=== PATIENT | female | born 1950 | race Caucasian/White ===

== ENCOUNTER 2016-08-08 21:08 | Emergency (ER) | payer OTHER ==
[~2016-08-08] VITALS: Ht 160 cm; Wt 84.8 kg
[~2016-08-08 21:08] MED LIST: ADVIN25/60 INH; ATOR10TA82 PO; CALC500C70 PO; ESCI1TAB6 PO; MOME50SP5; MULT-513 PO
[2016-08-08 21:11] VITALS: TEMP 37.9; Ht 160 cm; Wt 84.8 kg
[2016-08-08] MEDS ORDERED: KETOROLAC TROMETHAMINE 60 MG/2 ML VIAL IM STA (21:37)
[2016-08-08] MEDS ORDERED: ONDANSETRON 4MG OD TAB PO STA (21:37)
[2016-08-08] MEDS ORDERED: DEXAMETHASONE SOD INJ 10 MG/ML VIAL IM ONE (21:45)
[2016-08-08] MEDS ORDERED: MoRPHine SULFATE 4 MG/ML 1 ML CARP\\VIAL IM ONE (21:45)
[2016-08-08] MEDS ORDERED: OMEP20CA9 PO (22:02)
[2016-08-08] MEDS ORDERED: ATOR-22 PO (22:02)
[2016-08-08] MEDS ORDERED: MOME6000 (22:02)
[2016-08-08] MEDS ORDERED: LXP10 PO (22:02)
--- NOTE | 2016-08-08 22:21 | DIAGNOSTIC IMAGING REPORT ---
RIGHT SHOULDER MIN 2 VIEWS ROUTINE CLINICAL HISTORY: Right shoulder pain COMPARISON: None. DISCUSSION: No fractures or dislocations are visualized. There is mild spurring at the level the greater tuberosity. There are no destructive lesions. There are no visible periarticular calcifications. IMPRESSION: No fractures, dislocations, or destructive lesions are visualized. Electronically signed by: Marcelo Back M.D. 08/08/2016 10:20 PM Dictated Date/Time: 08/08/2016 10:19 PM
[2016-08-08 22:42] VITALS: BP 129/79; PULSE 94; O2SAT 97
[2016-08-08] MEDS ORDERED: NORCO 5/325MG HOME PACK PO ONE (22:45)
[2016-08-08] MEDS ORDERED: OXYC1TAB3 PO (22:49)
[2016-08-08] MEDS ORDERED: PRED50TA PO (22:49)
--- NOTE | 2016-08-09 02:17 | EMERGENCY ROOM VISIT NOTE ---
ED Visit Note First contact with patient: 21:28 CHIEF COMPLAINT: Shoulder pain HISTORY OF PRESENT ILLNESS: This 66-year-old female patient presents to the emergency department complaining of pain in the right shoulder that began worsening today after she awoke from sleep. The patient has difficulty with range of motion of the shoulder. She does not recall injury or trauma. She has not had increase in activity. The pain is moderate, constant and increases with motion of the hand and arm. The patient states the pain is dull and 8/10. The patient has taken ibuprofen without relief of the pain. No previous significant previous shoulder disease or injury. No numbness or tingling. No neck and no back pain. No chest pain or shortness of breath. No abdominal pain or nausea/vomiting. No cough. REVIEW OF SYSTEMS: A 6 system review of systems was performed with positives and pertinent negatives in the HPI. ALLERGIES: PCN MEDICATIONS: See EMR PMH: See EMR SOCIAL HISTORY: No chronic medical disease PHYSICAL EXAM: Vital Signs: Reviewed nurse's notes, vital signs stable. GENERAL : White female, in no acute distress, but appears to be in pain, well-developed , well-nourished. MUSCULOSKELETAL: There is no deformity in the contour of the right shoulder and there are no shan deformities noted. There is no sulcus sign. There is tenderness over the distal clavicle into the lateral shoulder. The patient's range of motion is limited. Supraspinatus strength 2/5. No tenderness of the humerus, elbow, wrist, or hand. Senior Principal Software Engineer strength 5/5. Radial pulse 2+. NECK: No tenderness to palpation over the cervical spine. HEART: Regular rate and rhythm without murmurs gallops or rubs. LUNGS: Clear to auscultation bilaterally without wheezes, rales or rhonchi. No accessory muscle use. No retractions. NEURO: The patient is alert and oriented to person , place, and time. Normal sensation to light and sharp touch. Capillary refill less than 2 seconds. RIGHT SHOULDER MIN 2 VIEWS ROUTINE CLINICAL HISTORY: Right shoulder pain COMPARISON: None. DISCUSSION: No fractures or dislocations are visualized. There is mild spurring at the level the greater tuberosity. There are no destructive lesions. There are no visible periarticular calcifications. IMPRESSION: No fractures, dislocations, or destructive lesions are visualized. EMERGENCY DEPARTMENT COURSE: Physical exam and history were performed. Nursing notes and EMR were reviewed. The patient appears to have right shoulder pain. She is uncomfortable on exam. Her pain is reproducible with palpation and range of motion does exacerbate her symptoms. I do not suspect a cardiac etiology. The patient was given 4 mg IM morphine, 10 mg IM Decadron, 60 mg IM Toradol, and 4 mg Zofran ODT for her symptoms. X-rays were obtained and do not show evidence of acute bony abnormality per radiology read. I discussed options of care with the patient, who did feel much better after analgesics. I suspect her symptoms are musculoskeletal in nature and we will give her a short course of pain medication and steroids. She has followed with Dr. Arias the past and will be referred back to his service for further care and management. The patient was placed in an arm sling for comfort. She was otherwise invited back to the ER with any new, worsening, or concerning symptoms. Current/Historical Medications Scheduled Atorvastatin (Lipitor), 20 MG PO DAILY Calcium/Vitamin D (Os-Fabrizio 500 Plus D), 1 TAB PO DAILY Escitalopram Oxalate (Escitalopram Oxalate), 5 MG PO DAILY Fluticasone Prop/Salmeterol (Advair Diskus 250/50 60 Dose), 1 PUFF INH BID Multivitamins/Minerals (Mvi With Minerals), 1 TAB PO DAILY Omeprazole (Prilosec), 20 MG PO DAILY Oxycodone Immediate Rel Tab (Roxicodone Ir), 1 TAB PO Q6 Prednisone (Prednisone), 50 MG PO DAILY Scheduled PRN Mometasone Furoate (Nasal) (Mometasone Furoate), 1 SPRAY NA UD PRN for Post Nasal Drip Allergies Coded Allergies: Penicillins (Verified Allergy, Mild, RASH, 06/05/15) Vital Signs Date Time Temp Pulse Resp B/P Pulse Ox O2 Delivery O2 Flow Rate FiO2 08/08/16 22:42 94 16 129/79 97 Room Air 08/08/16 21:11 37.9 76 18 118/71 96 Room Air Medications Administered Medications (Trade) Dose Ordered Sig/Jewel Route Start Time Stop Time Status Last Admin Dose Admin Dexamethasone Sodium Phosphate (Decadron Inj) 10 mg NOW ONCE IM 08/08/16 21:45 08/08/16 21:46 DC 08/08/16 21:47 10 MG Morphine Sulfate (MoRPHine SULFATE INJ) 4 mg NOW ONCE IM 08/08/16 21:45 08/08/16 21:46 DC 08/08/16 21:47 4 MG Ondansetron HCl (Zofran Odt) 4 mg NOW STAT PO 08/08/16 21:37 08/08/16 21:39 DC 08/08/16 21:47 4 MG Ketorolac Tromethamine (Toradol Inj) 60 mg NOW STAT IM 08/08/16 21:37 08/08/16 21:39 DC 08/08/16 21:48 60 MG Departure Information Impression Primary Impression: Right shoulder pain Dispostion Home / Self-Care Condition GOOD Prescriptions Prednisone (Prednisone) 50 Mg Tab 50 MG PO DAILY for 4 Days, #4 TAB Prov: Roshan Painting PA-C 08/08/16 Oxycodone Immediate Rel Tab (ROXICODONE IR) 5 Mg Tab 1 TAB PO Q6, #12 TAB Prov: Roshan Painting PA-C 08/08/16 Referrals Yousif Andrews M.D. Forms HOME CARE DOCUMENTATION FORM, IMPORTANT VISIT INFORMATION Patient Instructions My [facility] Additional Instructions You were seen and evaluated today on an emergency basis only. This is not a substitute for, or an effort to provide, complete comprehensive medical care. It is not possible to recognize and treat all injuries or illnesses in a single emergency department visit. For this reason it is recommended that you followup with Orthopedics, Dr. Andrews's office, for ongoing care and evaluation. For baseline pain relief you may alternate ibuprofen and acetaminophen every 4 hours for pain control. Take 600 mg ibuprofen (Advil) and then 4 hours later take 1000 mg acetaminophen (Tylenol). Do not take more than 3000 mg acetaminophen in a single day. Oxycodone (OxyIR) 5mg: Take ONE pill every SIX hours for breakthrough pain. Avoid alcohol, operating machinery or dangerous equipment, working on ladders or roofs, DRIVING, or situations where being under the influence may be dangerous. It is recommended to use an lyei-myu-ohkzhie stool softener such as Colace, 100mg twice daily while taking this medication to avoid constipation. Take prednisone as prescribed the next 4 days Wear your arm sling for comfort. You are welcome to return to the emergency department anytime with new, worsening, or concerning symptoms.
[2017-01-01] MEDS ORDERED: GABA-113 PO (13:22)
[2017-01-23] MEDS ORDERED: DULO-24 PO (11:36)
[2017-01-23] MEDS ORDERED: MELO7.5T5 PO (11:36)
== END 2016-08-08 22:53 | disposition home or self-care (01) ==
LOC: C.EDB 21:10 → C.EDD 22:53
DX: M25.511 Pain in right shoulder (principal); Z79.899 Other long term (current) drug therapy

== ENCOUNTER → 2016-10-04 | Outpatient (CLI) | payer OTHER ==
[~2016-10-04] MED LIST changes: +ATOR-22 PO; -ATOR10TA82 PO; +CHOL100010 PO; +DULO-24 PO; -ESCI1TAB6 PO; +GABA-113 PO; +LORA-741 PO; +LXP10 PO; +MELO7.5T5 PO; -MOME50SP5; +MOME6000; +OMEP20CA9 PO; +OXYC1TAB3 PO; +PRED10TA PO; +PRED20TA2 PO
== END ==
LOC: C.PAPS 17:30
PROVIDERS: ATTEND Obstetrics & Gynecology
DX: Z12.4 Encounter for screening for malignant neoplasm of cervix (principal)

== ENCOUNTER → 2016-12-04 | Outpatient (CLI) | payer OTHER ==
--- NOTE | 2016-12-04 09:57 | DIAGNOSTIC IMAGING REPORT ---
LEFT SHOULDER MIN 2 VIEWS ROUTINE HISTORY: 66 years-old Female Radicular pain of left upper extremityleft COMPARISON: Chest radiographs 01/11/2016 TECHNIQUE: 3 views of the left shoulder. FINDINGS: Mild AC joint degenerative changes are present. 7 x 3 mm calcification adjacent to the greater tuberosity suggesting calcific tendinosis of the rotator cuff, likely the infraspinatus. There is spurring of the greater tuberosity. Minimal marginal spurring involves the glenohumeral joint. There is no acute fracture or dislocation identified. Imaged left lung field appears clear. IMPRESSION: 1. No acute bony abnormality. 2. Mild glenohumeral and acromioclavicular osteoarthritis. 3. Calcific tendinosis of the left rotator cuff, likely the infraspinatus. The above report was generated using voice recognition software. It may contain grammatical, syntax or spelling errors. Electronically signed by: Beau Alvarez M.D. 12/04/2016 9:55 AM Dictated Date/Time: 12/04/2016 9:53 AM
== END | disposition home or self-care (01) ==
LOC: C.RADBC 09:42
PROVIDERS: ATTEND Physician Assistant
DX: M79.2 Neuralgia and neuritis, unspecified (principal); M75.32 Calcific tendinitis of left shoulder

== ENCOUNTER → 2016-12-04 | Outpatient (CLI) | payer OTHER ==
[2016-12-04 11:58] LABS: BASO % 0.1 %; BASO ABS # 0.01 K/uL (0-0.2); COMPLETE YES; EOS % 1.2 %; IG% 0.1 %; LYMPH % 34.2 %; LYMPH ABS # 2.37 K/uL (1.2-3.4); MEAN CELL VOLUME 86.8 fL (80-100); MEAN CORPUSCULAR HEMOGLOBIN 27.7 pg (25-34); MEAN CORPUSCULAR HGB CONC 31.9 g/dl (32-36); MEAN PLATELET VOLUME 9.4 fL (7.4-10.4); MONO % 8.5 %; NEUT % 55.9 %; PLATELET COUNT 221 K/uL (130-400); RED BLOOD COUNT 5.53 M/uL (4.2-5.4); WHITE BLOOD COUNT 6.92 K/uL (4.8-10.8)
[2016-12-04 12:23] LABS: ALKALINE PHOSPHATASE 91 U/L (45-117); ALT/SGPT 53 U/L (12-78); AST/SGOT 33 U/L (15-37); BLOOD UREA NITROGEN 23 mg/dl (7-18); BUN/CREATININE RATIO 24.9 (10-20); CALCIUM 8.9 mg/dl (8.5-10.1); CARBON DIOXIDE 28 mmol/L (21-32); CHLORIDE 106 mmol/L (98-107); CREATININE 0.93 mg/dl (0.60-1.20); GLUCOSE 86 mg/dl (70-99); POTASSIUM 3.5 mmol/L (3.5-5.1); SODIUM 142 mmol/L (136-145)
[2016-12-04 12:34] LABS: ALB/GLOB RATIO 1.2 (0.9-2); CHOLESTEROL 224 mg/dl (0-200); CHOLESTEROL/HDL RATIO 3.4; HDL CHOLESTEROL 66 mg/dl; LDL CHOLESTEROL CALCULATED 116 mg/dl; TRIGLYCERIDES 208 mg/dl (0-150); VERY LOW DENSITY LIPOPROT CALC 42 mg/dl
[2016-12-04 12:45] LABS: LYME DISEASE AB IGG NEG (NEG)
[2016-12-04 12:46] LABS: LYME DISEASE AB IGM NEG (NEG)
--- NOTE | 2016-12-19 10:45 | CODING QUERY MEDICAL NECESSITY ---
CQSUPPORTING DIAGNOSIS NEEDED A supporting diagnosis is required for the test/procedure performed on this patient in order for us to be reimbursed by the patient's insurance. Please provide a supporting diagnosis for the following test/procedure listed below next to the test name along with your signature. *If there is no additional diagnosis for this patient that would support the following test/procedure please document that below next to the test/procedure. Test(s)/Procedure(s) that require a supporting diagnosis: DOS 12/04/16 VITAMIN D TEST Provider Signature: Date: Thank you Stacia Townsend Health Information Management Once completed, please kindly fax back to [phone] For questions please call [phone]
== END | disposition home or self-care (01) ==
LOC: C.LABPBG 07:51
PROVIDERS: ATTEND Internal Medicine Geriatric Medicine
DX: J45.909 Unspecified asthma, uncomplicated (principal); G47.33 Obstructive sleep apnea (adult) (pediatric); M19.90 Unspecified osteoarthritis, unspecified site; R51 Headache; E78.5 Hyperlipidemia, unspecified; T14.8 Other injury of unspecified body region; W57.XXXA Bitten or stung by nonvenomous insect and other nonvenomous arthropods, initial encounter; M79.2 Neuralgia and neuritis, unspecified; M75.32 Calcific tendinitis of left shoulder; E55.9 Vitamin D deficiency, unspecified

== ENCOUNTER 2016-12-08 17:42 | Emergency (ER) | payer OTHER ==
[~2016-12-08] VITALS: Ht 160 cm; Wt 85.7 kg
[~2016-12-08 17:42] MED LIST changes: -CHOL100010 PO; -DULO-24 PO; -GABA-113 PO; -LORA-741 PO; -MELO7.5T5 PO; -PRED10TA PO; -PRED20TA2 PO
[2016-12-08 17:45] VITALS: TEMP 36.8; Ht 160 cm; Wt 85.7 kg
[2016-12-08] MEDS ORDERED: KETOROLAC TROMETHAMINE 30 MG/ML VIAL IV STA (17:59)
[2016-12-08] MEDS ORDERED: SODIUM CHLORIDE 0.9% 1000ML 1,000 ML IV STA (17:59)
[2016-12-08] MEDS ORDERED: OXYCODONE HCL IR 5 MG TAB (IMMEDIATE RELEASE) PO STA (17:59)
[2016-12-08] MEDS ORDERED: DEXAMETHASONE SOD INJ 10 MG/ML VIAL IV ONE (18:00)
--- NOTE | 2016-12-08 18:06 | EMERGENCY ROOM VISIT NOTE ---
History Report prepared by Aarti: Deanna Castillo Under the Supervision of: Dr. Cayden Kong D.O. First contact with patient: 17:49 Chief Complaint: ARM PAIN Stated Complaint: LEFT ARM PAIN History of Present Illness The patient is a 66 year old female who presents to the Emergency Room with complaints of persistent left shoulder pain that began several days ago. She currently rates her discomfort as a 10/10 in severity. The patient reports a history of osteoarthritis in her neck. She states that recently she began experiencing posterior left shoulder pain. The patient states that she was evaluated in her PCP's office on Friday and then had an x-ray and blood work done on Friday. She states that her x-ray revealed calcifications, bone spurs, and osteoarthritis. The patient states that she tested negative for Lyme disease. She states that the pain is radiating from her "trigger point" in her neck down her arm. The patient states that she began physical therapy and states that she additionally had therapy on Friday. She states that she attempted to get a hold of her PCP's office, but states that when she couldn't she called her physical therapist. The patient states that her therapist encouraged her to come into the emergency department for further evaluation and treatment. She reports left handed numbness and weakness in her left hand. The patient states that her pain is worsened with letting her arm hang down, but states that it is alleviated with propping her arm up or holding it up. She states that she has taken Ibuprofen for her discomfort. The patient states that she was started on Prednisone recently. She states that she has noticed back pain with deep breathing. The patient states that she has had difficulty sleeping secondary to the pain. She reports a history of high cholesterol and asthma, but denies any personal history of cancer. The patient denies any tobacco or alcohol use. She denies any chest pain, abdominal pain, rash, or swelling or pain to her lower extremities. Source of History: patient Onset: several days ago Position: shoulder (left) Symptom Intensity: 10/10 Timing: other (persistent) Modifying Factors (Worsening): other (letting arm hang down) Modifying Factors (Relieving): other (propping left arm up) Associated Symptoms: + neck pain, + back pain, + weakness (left hand), + numbness (left hand), No chest pain, No abdominal pain, No rash Review of Systems See HPI for pertinent positives & negatives. A total of 10 systems reviewed and were otherwise negative. Past Medical & Surgical Medical Problems: (1) Asthma (2) High cholesterol (3) Osteoarthritis Surgical Problems: (1) History of left knee replacement (2) History of right knee joint replacement (3) Hx of cholecystectomy Family History Cancer Heart disease Hypertension Kidney disease Kidney stones Social History Smoking Status: Never Smoker Smokeless Tobacco Use: No Alcohol Use: none Marital Status: Housing Status: lives with significant other Current/Historical Medications Scheduled Atorvastatin (Lipitor), 20 MG PO HS Calcium/Vitamin D (Os-Fabrizio 500 Plus D), 1 TAB PO DAILY Escitalopram Oxalate (Escitalopram Oxalate), 5 MG PO HS Fluticasone Prop/Salmeterol (Advair Diskus 250/50 60 Dose), 1 PUFF INH BID Multivitamins/Minerals (Mvi With Minerals), 1 TAB PO DAILY Omeprazole (Prilosec), 20 MG PO DAILY Prednisone (Prednisone), 10 MG PO UNKNOWN Prednisone (Prednisone Tab), 40 MG PO DAILY Scheduled PRN Mometasone Furoate (Nasal) (Mometasone Furoate), 1 SPRAY NA UD PRN for Post Nasal Drip Oxycodone Immediate Rel Tab (Roxicodone Ir), 1-2 TAB PO Q4H PRN for Severe Pain Allergies Coded Allergies: Penicillins (Verified Allergy, Mild, RASH, 06/05/15) Physical Exam Vital Signs Date Time Temp Pulse Resp B/P (MAP) Pulse Ox O2 Delivery O2 Flow Rate FiO2 12/08/16 19:40 77 18 158/92 97 Room Air 12/08/16 19:13 70 12/08/16 18:33 97 Room Air 12/08/16 18:33 97 Room Air 12/08/16 17:45 36.8 81 20 185/113 98 Room Air Physical Exam GENERAL: Patient is awake, alert, mildly anxious appearing and uncomfortable. EYES: The conjunctivae are clear. The pupils are round and reactive. EARS, NOSE, MOUTH AND THROAT: The nose is without any evidence of any deformity. Mucous membranes are moist tongue is midline NECK: The neck is nontender and supple. RESPIRATORY: Normal respiratory effort is noted there is no evidence of wheezing rhonchi or rales CARDIOVASCULAR: Regular rate and rhythm noted there no murmurs rubs or gallops normal S1 normal S2 GASTROINTESTINAL: The abdomen is soft. Bowel sounds are present in all quadrants. Abdomen is nontender BACK: Tenderness over the thoracic paravertebral musculature between the T- spine and left scapula, no midline tenderness noted. MUSCULOSKELETAL/EXTREMITIES: There is no evidence of gross deformity full range of motion is noted in the hips and shoulders SKIN: There is no obvious evidence of any rash. There are no petechiae, pallor or cyanosis noted. NEUROLOGIC: Patient is awake alert and oriented x3 strength is symmetric patellar reflexes are 2+ bilaterally. Achilles tendon reflexes are 2+ bilaterally, biceps tendon reflexes 2+ bilaterally. Medical Decision & Procedures ER Provider Diagnostic Interpretation: X-ray results as stated below per interpretation by me and the radiologist. CHEST 2 VIEWS ROUTINE HISTORY: 66 years-old Female acute back pain with radiation to the left arm. COMPARISON: Chest radiographs 01/11/2016 TECHNIQUE: Frontal and lateral views of the chest FINDINGS: The cardiomediastinal and hilar silhouettes are within normal limits. No pneumothorax, pleural effusion, focal airspace consolidation or overt pulmonary edema. The bones are grossly intact. Multilevel endplate spurring is seen throughout the spine. No compression deformity identified. Cholecystectomy clips are seen. IMPRESSION: 1. No acute cardiopulmonary process. 2. No fracture identified. The above report was generated using voice recognition software. It may contain grammatical, syntax or spelling errors. Electronically signed by: Beau Alvarez M.D. 12/08/2016 7:15 PM Dictated Date/Time: 12/08/2016 7:13 PM C-SPINE ROUTINE 4 OR 5 VIEWS HISTORY: 66 years-old Female pain radiating to the left upper extremity. Chronic neck pain. COMPARISON: Chest radiographs of same day, cervical spine radiographs 12/08/2014 TECHNIQUE: 5 views of the cervical spine. FINDINGS: Bones are moderately demineralized. The C6-C7 level and the C7 vertebral body are partially obscured by overlying soft tissue. No acute fracture or subluxation identified. The odontoid process appears intact. There is redemonstration of multilevel advanced degenerative changes including severe intervertebral disc space narrowing at C3-C4, C4-C5, C5-C6 and C6-C7. Multilevel uncovertebral spurring and facet arthrosis is also present. These changes combine to form multilevel neuroforaminal stenosis on the right, notably at the C3-C4 and C4-C5 levels. The left neuroforamina are normal seen secondary to patient positioning. No prevertebral soft tissue swelling. No radiopaque foreign body. Imaged lung apices are unremarkable. IMPRESSION: 1. No acute cervical spine fracture or subluxation. 2. Multilevel advanced degenerative changes of the cervical spine as above without definite change from comparison study 12/08/2014. The above report was generated using voice recognition software. It may contain grammatical, syntax or spelling errors. Electronically signed by: Beau Alvarez M.D. 12/08/2016 7:10 PM Dictated Date/Time: 12/08/2016 7:07 PM Laboratory Results 12/08/16 18:10 Red Blood Count 5.50, Mean Corpuscular Volume 84.2, Mean Corpuscular Hemoglobin 28.7, Mean Corpuscular Hemoglobin Concent 34.1, Mean Platelet Volume 8.9, Neutrophils (%) (Auto) 74.6, Lymphocytes (%) (Auto) 16.9, Monocytes (%) (Auto) 7.3, Eosinophils (%) (Auto) 0.8, Basophils (%) (Auto) 0.1, Neutrophils # (Auto) 5.27, Lymphocytes # (Auto) 1.20, Monocytes # (Auto) 0.52, Eosinophils # (Auto) 0.06, Basophils # (Auto) 0.01 12/08/16 18:10 Test 12/08/16 18:10 White Blood Count 7.08 K/uL (4.8-10.8) Red Blood Count 5.50 M/uL (4.2-5.4) Hemoglobin 15.8 g/dL (12.0-16.0) Hematocrit 46.3 % (37-47) Mean Corpuscular Volume 84.2 fL (80-100) Mean Corpuscular Hemoglobin 28.7 pg (25-34) Mean Corpuscular Hemoglobin Concent 34.1 g/dl (32-36) Platelet Count 202 K/uL (130-400) Mean Platelet Volume 8.9 fL (7.4-10.4) Neutrophils (%) (Auto) 74.6 % Lymphocytes (%) (Auto) 16.9 % Monocytes (%) (Auto) 7.3 % Eosinophils (%) (Auto) 0.8 % Basophils (%) (Auto) 0.1 % Neutrophils # (Auto) 5.27 K/uL (1.4-6.5) Lymphocytes # (Auto) 1.20 K/uL (1.2-3.4) Monocytes # (Auto) 0.52 K/uL (0.11-0.59) Eosinophils # (Auto) 0.06 K/uL (0-0.5) Basophils # (Auto) 0.01 K/uL (0-0.2) RDW Standard Deviation 41.4 fL (36.4-46.3) RDW Coefficient of Variation 13.5 % (11.5-14.5) Immature Granulocyte % (Auto) 0.3 % Immature Granulocyte # (Auto) 0.02 K/uL (0.00-0.02) Prothrombin Time 10.6 SECONDS (9.0-12.0) Prothromb Time International Ratio 1.0 (0.9-1.1) Activated Partial Thromboplast Time 23.8 SECONDS (21.0-31.0) Partial Thromboplastin Ratio 0.9 Anion Gap 5.0 mmol/L (3-11) Est Creatinine Clear Calc Drug Dose 64.6 ml/min Estimated GFR () 77.8 Estimated GFR (Non- 67.1 BUN/Creatinine Ratio 19.4 (10-20) Calcium Level 9.1 mg/dl (8.5-10.1) Total Bilirubin 0.9 mg/dl (0.2-1) Direct Bilirubin 0.2 mg/dl (0-0.2) Aspartate Amino Transf (AST/SGOT) 24 U/L (15-37) Alanine Aminotransferase (ALT/SGPT) 42 U/L (12-78) Alkaline Phosphatase 90 U/L (45-117) Troponin I < 0.015 ng/ml (0-0.045) Total Protein 7.5 gm/dl (6.4-8.2) Albumin 4.0 gm/dl (3.4-5.0) Lipase 227 U/L (73-393) Laboratory results per my review. Medications Administered Medications (Trade) Dose Ordered Sig/Jewel Route Start Time Stop Time Status Last Admin Dose Admin Sodium Chloride 1,000 ml @ 999 mls/hr Q1H1M STAT IV 12/08/16 17:59 12/08/16 18:59 DC 12/08/16 17:59 999 MLS/HR Dexamethasone Sodium Phosphate (Decadron Inj) 10 mg NOW ONCE IV 12/08/16 18:00 12/08/16 18:01 DC 12/08/16 18:21 10 MG Ketorolac Tromethamine (Toradol Inj) 30 mg NOW STAT IV 12/08/16 17:59 12/08/16 18:02 DC 12/08/16 18:20 30 MG Oxycodone HCl (Roxicodone Immediate Rel Tab) 5 mg NOW STAT PO 12/08/16 17:59 12/08/16 18:02 DC 12/08/16 18:21 5 MG Oxycodone HCl (Roxicodone Immediate Rel 5MG Home Pack) 1 homepack UD ONCE PO 12/08/16 20:15 12/08/16 20:16 DC 12/08/16 20:14 1 HOMEPACK ECG Indication: back/shoulder pain Rate (beats per minute): 65 Rhythm: normal sinus Findings: no acute ischemic change, no ectopy Comparison ECG Date: 06/16/14 ED Course 1750: The patient was evaluated in room B2. A complete history and physical examination were performed. 1758: Ordered Oxycodone HCl 5 mg PO, Toradol Inj 30 mg IV, Sodium Chloride 1000 ml @ 999 mls/hr IV, Decadron Inj 10 mg IV. 1958: I reevaluated the patient and she is resting comfortably. I discussed the exam findings with her and I discussed the treatment plan. She verbalized complete understanding and agreement. She is ready to go home. 2014: Ordered Oxycodone HCl 1 homepack PO. Medical Decision Differential diagnosis: Etiologies such as musculoskeletal, disc herniation, fracture, aortic disease, metastatic disease, cord compression, discitis, infection, renal colic, gastrointestinal, acute exacerbation of chronic back pain, sciatica, cauda equina, as well as others were entertained. Nursing notes reviewed. The patient is a 66-year-old female who presented to the emergency department for ongoing left shoulder pain. The patient appears to have musculoskeletal pain around her left scapula but she also noticed pain which radiates into her left arm. This pain is been constant since last week. The patient did not have any acute ischemic changes on EKG. Her cardiac biomarkers were negative. The patient was treated with steroids by her primary care physician's office with some relief. She was also started on steroids here. She was treated with IV fluids and pain medication as well. I discussed the patient's laboratory radiographic studies with her. She was neurologically intact. She describes pain which I think could be consistent with radiculopathy. Her x-rays did show some degree of arthritis. Currently she is scheduled with physical therapy and she is also scheduled for an EMG in the near future. She was encouraged to keep going to physical therapy and keep the appointment for EMG. She was also encouraged to continue all medications as prescribed and follow-up with her family doctor for recheck or return to the emergency department immediately if symptoms change worsen or the need arises. Medication Reconcilliation Current Medication List: was personally reviewed by me Blood Pressure Screening Patient's blood pressure: Elevated blood pressure Blood pressure disposition: Elevated BP felt to be situational, Did not require urgent referral Impression Primary Impression: Left shoulder pain Additional Impression: Radiculopathy affecting upper extremity Scribe Attestation The scribe's documentation has been prepared under my direction and personally reviewed by me in its entirety. I confirm that the note above accurately reflects all work, treatment, procedures, and medical decision making performed by me. Departure Information Dispostion Home / Self-Care Prescriptions Prednisone (Prednisone Tab) 20 Mg Tab 40 MG PO DAILY, #10 TAB Prov: Cayden Kong, DO 12/08/16 Oxycodone Immediate Rel Tab (ROXICODONE IR) 5 Mg Tab 1-2 TAB PO Q4H Y for Severe Pain, #20 TAB Prov: Cayden Kong, DO 12/08/16 Referrals Calvin Neal M.D. (PCP) Forms HOME CARE DOCUMENTATION FORM, IMPORTANT VISIT INFORMATION Patient Instructions ED Cervical Radiculopathy, [facility] Additional Instructions Continue to follow-up with your family doctor. Follow-up with physical therapy as scheduled. Follow-up for your EMG as scheduled. Continue all medications as prescribed. Rest and avoid any strenuous activity. Problem Qualifiers Primary Impression: Left shoulder pain Chronicity: acute Qualified Codes: M25.512 - Pain in left shoulder
[2016-12-08] MEDS ORDERED: PRED10TA PO (18:12)
[2016-12-08 18:19] LABS: BASO % 0.1 %; BASO ABS # 0.01 K/uL (0-0.2); COMPLETE YES; EOS % 0.8 %; HEMATOCRIT 46.3 % (37-47); IG% 0.3 %; LYMPH % 16.9 %; MEAN CELL VOLUME 84.2 fL (80-100); MEAN CORPUSCULAR HEMOGLOBIN 28.7 pg (25-34); MEAN CORPUSCULAR HGB CONC 34.1 g/dl (32-36); MEAN PLATELET VOLUME 8.9 fL (7.4-10.4); MONO % 7.3 %; NEUT % 74.6 %; PLATELET COUNT 202 K/uL (130-400); WHITE BLOOD COUNT 7.08 K/uL (4.8-10.8)
[2016-12-08 18:31] LABS: PARTIAL THROMBOPLASTIN RATIO 0.9; PROTHROMBIN TIME (PATIENT) 10.6 SECONDS (9.0-12.0)
[2016-12-08 18:33] VITALS: O2SAT 97
[2016-12-08 18:33] LABS: ALT/SGPT 42 U/L (12-78); AST/SGOT 24 U/L (15-37); BLOOD UREA NITROGEN 18 mg/dl (7-18); BUN/CREATININE RATIO 19.4 (10-20); CALCIUM 9.1 mg/dl (8.5-10.1); CARBON DIOXIDE 31 mmol/L (21-32); CHLORIDE 106 mmol/L (98-107); GLUCOSE 111 mg/dl (70-99); POTASSIUM 4.3 mmol/L (3.5-5.1); SODIUM 142 mmol/L (136-145)
[2016-12-08 18:38] LABS: ALKALINE PHOSPHATASE 90 U/L (45-117)
--- NOTE | 2016-12-08 19:11 | DIAGNOSTIC IMAGING REPORT ---
C-SPINE ROUTINE 4 OR 5 VIEWS HISTORY: 66 years-old Female pain radiating to the left upper extremity. Chronic neck pain. COMPARISON: Chest radiographs of same day, cervical spine radiographs 12/08/2014 TECHNIQUE: 5 views of the cervical spine. FINDINGS: Bones are moderately demineralized. The C6-C7 level and the C7 vertebral body are partially obscured by overlying soft tissue. No acute fracture or subluxation identified. The odontoid process appears intact. There is redemonstration of multilevel advanced degenerative changes including severe intervertebral disc space narrowing at C3-C4, C4-C5, C5-C6 and C6-C7. Multilevel uncovertebral spurring and facet arthrosis is also present. These changes combine to form multilevel neuroforaminal stenosis on the right, notably at the C3-C4 and C4-C5 levels. The left neuroforamina are normal seen secondary to patient positioning. No prevertebral soft tissue swelling. No radiopaque foreign body. Imaged lung apices are unremarkable. IMPRESSION: 1. No acute cervical spine fracture or subluxation. 2. Multilevel advanced degenerative changes of the cervical spine as above without definite change from comparison study 12/08/2014. The above report was generated using voice recognition software. It may contain grammatical, syntax or spelling errors. Electronically signed by: Beau Alvarez M.D. 12/08/2016 7:10 PM Dictated Date/Time: 12/08/2016 7:07 PM
--- NOTE | 2016-12-08 19:16 | DIAGNOSTIC IMAGING REPORT ---
CHEST 2 VIEWS ROUTINE HISTORY: 66 years-old Female acute back pain with radiation to the left arm. COMPARISON: Chest radiographs 01/11/2016 TECHNIQUE: Frontal and lateral views of the chest FINDINGS: The cardiomediastinal and hilar silhouettes are within normal limits. No pneumothorax, pleural effusion, focal airspace consolidation or overt pulmonary edema. The bones are grossly intact. Multilevel endplate spurring is seen throughout the spine. No compression deformity identified. Cholecystectomy clips are seen. IMPRESSION: 1. No acute cardiopulmonary process. 2. No fracture identified. The above report was generated using voice recognition software. It may contain grammatical, syntax or spelling errors. Electronically signed by: Beau Alvarez M.D. 12/08/2016 7:15 PM Dictated Date/Time: 12/08/2016 7:13 PM
[2016-12-08 19:40] VITALS: BP 158/92; PULSE 77; O2SAT 97
[2016-12-08] MEDS ORDERED: OXYC1TAB3 PO (20:03)
[2016-12-08] MEDS ORDERED: PRED20TA2 PO (20:03)
[2016-12-08] MEDS ORDERED: OXYCODONE IR HOME PACK PO ONE (20:15)
[2017-01-01] MEDS ORDERED: GABA-113 PO (13:22)
[2017-01-23] MEDS ORDERED: MELO7.5T5 PO (11:36)
[2017-01-23] MEDS ORDERED: DULO-24 PO (11:36)
== END 2016-12-08 20:10 | disposition home or self-care (01) ==
LOC: C.EDB 17:43
DX: M25.512 Pain in left shoulder (principal); M54.10 Radiculopathy, site unspecified; E78.00 Pure hypercholesterolemia, unspecified; J45.909 Unspecified asthma, uncomplicated; M19.90 Unspecified osteoarthritis, unspecified site; Z80.9 Family history of malignant neoplasm, unspecified; Z82.49 Family history of ischemic heart disease and other diseases of the circulatory system; Z84.1 Family history of disorders of kidney and ureter; Z79.899 Other long term (current) drug therapy

== ENCOUNTER → 2016-12-19 | Outpatient (CLI) | payer OTHER ==
[~2016-12-19] MED LIST changes: +CHOL100010 PO; +DULO-24 PO; +GABA-113 PO; +LORA-741 PO; +MELO7.5T5 PO; +PRED10TA PO; +PRED20TA2 PO
--- NOTE | 2016-12-19 08:44 | DIAGNOSTIC IMAGING REPORT ---
UPPER EXT JOINT WITHOUT CLINICAL HISTORY: 66 years-old Female with R93.8,M54.12. Severe acute left-sided shoulder pain. COMPARISON: Left shoulder radiographs 12/04/2016. TECHNIQUE: Multiplanar, multi sequence MRI of the left shoulder was performed without intravenous contrast. FINDINGS: ROTATOR CUFF: There is a full-thickness articular sided tear of the anterior insertional supraspinatus tendon, 9 x 8 mm in transverse and AP dimension with background severe supraspinatus tendinosis. Additionally, there is intermediate grade interstitial tearing of the mid fibers of the supraspinatus tendon, 8 x 6 mm in transverse and AP dimension as seen on image 14 of the sagittal T2 series. There is mild supraspinatus tendon atrophy without retraction. High-grade partial-thickness articular sided tear of the posterior insertional fibers of the infraspinatus tendon is noted, 7 x 5 mm with moderate associated tendinosis. Intrasubstance tearing of the mid fibers is noted with with associated fluid tracking adjacent to the myotendinous junction. No associated atrophy or tendon retraction. Small calcification, 4 x 4 x 6 mm involving the posterior insertional infraspinatus is seen compatible with calcific tendinosis as seen on image 16 of the sagittal PD series and image 10 of the coronal PD series. The teres minor is intact. There is moderate tendinosis of the subscapularis tendon with mild fraying and irregularity of the superior insertional fibers. No high-grade or full-thickness tear identified. BICEPS TENDON: The long head biceps tendon is intact. No evidence of tendinosis. The biceps magdalena and anchor are intact. LABRUM: There is fraying and tearing of the anterosuperior labrum seen nicely on image 8 of the coronal T2 series with tear extending into the posterior labrum. No significant associated edema, displaced fragment or paralabral cyst formation. GLENOHUMERAL JOINT: There is mild osteoarthritis of the glenohumeral joint without intra-articular loose body identified. Small joint effusion. ACROMIOCLAVICULAR JOINT: Mild/moderate AC joint degenerative changes are noted with marginal spurring and capsular hypertrophy. There is a moderate amount of subacromial/subdeltoid bursitis. OUTLET SPACES: The suprascapular notch and quadrilateral space are without obstructing or space occupying lesions. BONE MARROW: Subcortical cystic changes are noted adjacent to the anterior facet greater tuberosity. There is no focal fracture identified. SOFT TISSUES: The periarticular soft tissues are unremarkable. IMPRESSION: 1. Full-thickness articular sided tear of the anterior insertional supraspinatus, 9 x 8 mm with intermediate grade interstitial tearing of the mid fibers. Mild atrophy of the supraspinatous tendon without tendon retraction. 2. High-grade partial-thickness tear of the posterior insertional articular fibers of the infraspinatus tendon with moderate tendinopathy and calcific tendinosis. 3. Moderate subacromial/subdeltoid bursitis. 4. Mild glenohumeral and mild to moderate acromioclavicular osteoarthritis. Small joint effusion. The above report was generated using voice recognition software. It may contain grammatical, syntax or spelling errors. Electronically signed by: Beau Alvarze M.D. 12/19/2016 8:43 AM Dictated Date/Time: 12/19/2016 7:57 AM
== END | disposition home or self-care (01) ==
LOC: C.MRI 06:52
PROVIDERS: ATTEND Physician Assistant
DX: R93.8 Abnormal findings on diagnostic imaging of other specified body structures (principal); M54.12 Radiculopathy, cervical region

== ENCOUNTER → 2016-12-20 | Outpatient (CLI) | payer OTHER ==
[~2016-12-20] MED LIST changes: +GADAVIST IV PRN
--- NOTE | 2016-12-20 12:36 | DIAGNOSTIC IMAGING REPORT ---
MRI CERVICAL SPINE COMBO CLINICAL HISTORY: ABNORMAL FINDING IMAGING, CERVICAL RADICULOPATHY SEVERE LEFT NECK AND SHOULDER PAIN. TECHNIQUE: Sagittal and axial T1, T2 and STIR images were obtained. Imaging was performed before and after the administration of 8.5 cc of intravenous Gadavist COMPARISON STUDY: Conventional radiographic study dated 12/08/2016 There are no suspicious areas of marrow replacement. No intrinsic cervical cord lesions are visualized. C2-3: There is no evidence of disc bulge or focal herniation. There is no spinal or foraminal stenosis. C3-4: There is a circumferential disc bulge present. There is mild spinal stenosis. There is bilateral foraminal narrowing. C4-5: There is a mild circumferential disc bulge present. There is minimal spinal canal narrowing. There is bilateral foraminal narrowing left more severe than right. C5-6 :There is a minimal circumferential disc bulge. There is no significant spinal stenosis. There is bilateral foraminal narrowing. C6-7: There is a right paracentral disc protrusion with mild secondary deformity of the spinal cord. There is mild bilateral foraminal narrowing C7-T1: There is 2.5 mm of anterior listhesis of C7 on T1. There is no significant spinal stenosis. There is minor left-sided foraminal narrowing Postcontrast images reveal no pathologically enhancing lesions. IMPRESSION: 1. No intrinsic cord lesions identified. No pathologic masses. 2. Advanced multilevel spondylitic changes. 3. Small right paracentral disc protrusion at the C6-7 level with mild secondary deformity of the spinal cord 4. Disc bulge and mild spinal stenosis at the C3-4 and C4-5 levels 5. Multilevel bilateral foraminal stenosis. Electronically signed by: Marcelo Back M.D. 12/20/2016 12:35 PM Dictated Date/Time: 12/20/2016 12:29 PM
== END | disposition home or self-care (01) ==
LOC: C.MRI 10:42
PROVIDERS: ATTEND Physician Assistant
DX: M50.21 Other cervical disc displacement, high cervical region (principal); M50.221 Other cervical disc displacement at C4-C5 level; M50.223 Other cervical disc displacement at C6-C7 level; M48.02 Spinal stenosis, cervical region

== ENCOUNTER 2017-01-06 09:24 | Day surgery (SDC) | payer OTHER ==
[~2017-01-06] VITALS: Ht 160 cm; Wt 84.0 kg
[2017-01-06] VITALS (10 sets, daily range): BP systolic 111–181; BP diastolic 71–96; PULSE 88–99; TEMP 36.4–37.1; O2SAT 93–100; Ht 160 cm; Wt 84.0 kg
[~2017-01-06 09:24] MED LIST changes: -CHOL100010 PO; -DULO-24 PO; -GADAVIST IV PRN; -LORA-741 PO; -MELO7.5T5 PO; -PRED10TA PO; -PRED20TA2 PO
[2017-01-06] MEDS ORDERED: CHOL100010 PO (09:42)
[2017-01-06] MEDS ORDERED: LORA-741 PO (09:42)
--- NOTE | 2017-01-06 12:30 | DIAGNOSTIC IMAGING REPORT ---
CERVICAL SPINE WITH CLINICAL HISTORY: 66 years-old Female presenting with neck pain, right arm pain. TECHNIQUE: Multidetector CT of the cervical spine was performed after the administration of intrathecal contrast IV contrast: None. A dose lowering technique was used consistent with the principles of ALARA (as low as reasonably achievable). COMPARISON: MR from 12/20/2016. CT DOSE (mGy.cm): The estimated cumulative dose is 1430.00. FINDINGS: Clinical Cytogenetics Director topogram: Unremarkable. Straightening of normal cervical lordosis. Vertebral body heights maintained. Intervertebral disc height loss at multiple levels secondary to the presence of disc osteophyte complexes from C3-4 through C6-7. Multilevel degenerative changes further detailed below: C2-3: Mild uncovertebral hypertrophy on the left without significant neural foraminal narrowing. C3-4: Disc osteophyte complex and uncovertebral hypertrophy result in severe right and moderate left neural foraminal narrowing. C4-5: Disc osteophyte complex and bilateral uncovertebral hypertrophy result in severe bilateral neural foraminal narrowing as well as ventral effacement of the thecal sac. No significant deformity of the spinal cord results. C5-6: Disc osteophyte complex and bilateral uncovertebral hypertrophy result in severe bilateral neural foraminal narrowing. No significant effacement of the thecal sac. C6-7: Disc osteophyte complex and uncovertebral hypertrophy result in severe effacement of the anterior aspect of the right lateral recess. This may exert mass effect on the exiting right C7 nerve root. The neural foramina are moderately narrowed bilaterally, greater on the left. Contouring of the right anterior aspect of the spinal cord also results. C7-T1: Normal. Paraspinal soft tissues within normal limits. Interlobular septal thickening at the lung apices with minimal groundglass opacity, nonspecific. IMPRESSION: 1. Multilevel degenerative changes with varying degrees of neural foraminal and spinal canal stenosis. Neural foraminal narrowing is most severe on the right at C3-4 and bilaterally at C4-5 and C5-6. However significant effacement of the anterior aspect of the right lateral recess at C6-7 likely exerts mass effect on the exiting right C7 nerve root. Spinal canal stenosis most severe at C4-5 and C6-7 as above. Electronically signed by: Yousif Harrison M.D. 01/06/2017 12:29 PM Dictated Date/Time: 01/06/2017 12:20 PM
--- NOTE | 2017-01-06 12:50 | DIAGNOSTIC IMAGING REPORT ---
MYELOGRAM, SUPER/INTER CERVICA CLINICAL HISTORY: 66 years-old Female presenting with neck pain. COMPARISON: MR cervical spine from 12/20/2016. PROCEDURE: The procedure, risks and benefits were discussed with the patient and her . The patient agreed to the procedure, and written informed consent was obtained. The procedure was performed by Dr. Harrison following a timeout. The L2-3 interspinous space was targeted. Skin overlying the space was prepped and draped in the usual aseptic fashion and local anesthesia was achieved with 1% lidocaine. Under intermittent fluoroscopic guidance, a 20-gauge x 3 1/2 in. Sprotte needle was inserted into the thecal sac. A total of 7 mL of Optiray 300 was injected intrathecally. The patient was placed in a head down position. Using intermittent fluoroscopy, intrathecal contrast flowed into the thoracic spine. Visualization of contrast in the cervical spine is difficult, likely dilutional. The patient tolerated the procedure well. There were no immediate complications. Fluoroscopy dosage: Not available. mGy. Fluoroscopy time: 1.2 minutes. Number of fluoroscopic spot images: 4. IMPRESSION: 1. Successful fluoroscopic guided cervical myelogram. No immediate complications. Electronically signed by: Yousif Harrison M.D. 01/06/2017 12:48 PM Dictated Date/Time: 01/06/2017 12:45 PM
--- NOTE | 2017-01-06 13:17 | Discharge Instructions ---
Discharge Instructions Procedure Procedure Date: Jan 06, 2017. Reason for visit: Neck Pain. Discharge Discharge Date: Jan 06, 2017. Discharge Diagnosis: Successful fluoroscopic guided cervical myelogram at L2-3. Medications Restart Stopped Medication(s): Resume home meds Instructions Activity Recommendations: No limitations Return to School/Work: no limitations Recommended Home Diet: No Limitations Provider Instructions: Lumbar Puncture/Myelogram performed with Fluoroscopic guidance [ L2-3] level with [20G ] needle. No complications. Allergies Coded Allergies: Penicillins (Verified Allergy, Mild, RASH, 01/06/17) Isabel Kauffman Recommendations: Call your doctor if: * Temperature above 101 degrees * Pain not relieved by pain medicine ordered * There is increased drainage or redness from any incision * You have any unanswered questions or concerns. Your Doctors Instructions noted above were prepared by provider Yousif Harrison. Patient Signature Section: Patient Instructions Signature Page Kiersten Toledo Patient (or Guardian) Signature/Date: I have read and understand the instructions given to me by my caregivers. Caregiver/RN/Doctor Signature/Date: The above-named patient and/or guardian has received patient instructions on this date. + Original Patient Signature Page (only) stays with chart. Please make copy for patient.
[2017-01-06] MEDS ORDERED: ACETAMINOPHEN 500 MG TAB PO PRN (13:30)
[2017-01-23] MEDS ORDERED: DULO-24 PO (11:36)
[2017-01-23] MEDS ORDERED: MELO7.5T5 PO (11:36)
== END 2017-01-06 16:27 | disposition home or self-care (01) ==
LOC: C.ACU 09:24
PROVIDERS: ATTEND Orthopaedic Surgery Orthopaedic Surgery of the Spine
DX: M54.2 Cervicalgia (principal)

== ENCOUNTER → 2017-01-29 | Outpatient (CLI) | payer OTHER ==
[~2017-01-29] MED LIST changes: +CHOL100010 PO; +DULO-24 PO; -LXP10 PO; +MELO7.5T5 PO; -OXYC1TAB3 PO
--- NOTE | 2017-01-30 07:46 | MAMMOGRAPHY REPORT ---
BILATERAL DIGITAL SCREENING MAMMOGRAM TOMOSYNTHESIS WITH CAD: 01/29/2017 CLINICAL HISTORY: Routine screening. Patient has no complaints. TECHNIQUE: Breast tomosynthesis in addition to standard 2D mammography was performed. Current study was also evaluated with a Computer Aided Detection (CAD) system. COMPARISON: Comparison is made to exams dated: 01/29/2016 mammogram, 01/27/2015 mammogram, 4 mammogram, 01/25/2013 mammogram, 08/31/2012 aspiration, and 08/06/2012 mammogram - [facility]. BREAST COMPOSITION: The tissue of both breasts is almost entirely fatty. FINDINGS: No suspicious mass, architectural distortion or cluster of microcalcifications is seen. IMPRESSION: ACR BI-RADS CATEGORY 1: NEGATIVE There is no mammographic evidence of malignancy. A 1 year screening mammogram is recommended. The pa tient will receive written notification of the results. Approximately 10% of breast cancers are not detected with mammography. A negative mammographic report should not delay biopsy if a clinically suggestive mass is present. Jazlyn pinzon/luann:01/29/2017 14:37:15 Commercial Loan Specialist: Malinda GIBBS(R)(M), [facility] letter sent: Normal 1/2 BI-RADS Code: ACR BI-RADS Category 1: Negative
== END | disposition home or self-care (01) ==
LOC: C.MAMM 13:16
PROVIDERS: ATTEND Obstetrics & Gynecology
DX: Z12.31 Encounter for screening mammogram for malignant neoplasm of breast (principal)

== ENCOUNTER → 2017-07-08 | Outpatient (CLI) | payer OTHER | END | disposition home or self-care (01) | LOC: C.LABPBG 08:36 | PROVIDERS: ATTEND Internal Medicine Geriatric Medicine | DX: E78.5 Hyperlipidemia, unspecified (principal); R94.6 Abnormal results of thyroid function studies; M79.2 Neuralgia and neuritis, unspecified ==

== ENCOUNTER 2023-09-16 05:11 | Observation (INO) ==
--- NOTE | 2023-08-19 10:14 | PAT Medication Instructions ---
Medication Instructions Date of Service August 19, 2023 Home Medications Medication Instructions Recorded BiPap Supplies #1 ea 11/14/20 BiPap Supplies #1 ea 01/05/21 fluticasone 250 mcg-salmeterol 50 1 inh inhalation BID #180 ea 01/07/23 mcg/dose blistr powdr for inhalation (Wixela Inhub) atorvastatin 20 mg tablet 40 mg (2 x 20 mg) PO HS #180 tabs 04/10/23 duloxetine 20 mg capsule,delayed 20 mg PO QAM #90 caps 06/04/23 release pantoprazole 40 mg tablet,delayed 40 mg PO QAM #90 tabs 08/06/23 release (Protonix) calcium carbonate 500 mg-vitamin D3 5 mcg (200 unit) tablet (Calcium 500 + D) 2 tab PO QAM lactobacillus combination no.4 3 billion cell capsule (Probiotic) 3,000 mmu cells PO QAM cholecalciferol (vitamin D3) 50 mcg (2,000 unit) tablet (Vitamin D3) 50 mcg PO QAM multivitamin 1 tab PO QAM fluticasone 250 mcg-salmeterol 50 mcg/dose blistr powdr for inhalation (Wixela Inhub) 1 inh inhalation BID azelastine 137 mcg (0.1 %) nasal spray aerosol 2 spray intranasal UD PRN sinus congestion ipratropium bromide 21 mcg (0.03 %) nasal spray 2 spray intranasal HS sinus congestion atorvastatin 20 mg tablet 40 mg (2 x 20 mg) PO HS duloxetine 20 mg capsule,delayed release 20 mg PO QAM pantoprazole 40 mg tablet,delayed release (Protonix) 40 mg PO QAM albuterol sulfate 90 mcg/actuation aerosol inhaler (Ventolin HFA) 2 puff inhalation UD PRN Shortness Of Breath DO NOT take the morning of surgery calcium carbonate 500 mg-vitamin D3 5 mcg (200 unit) tablet (Calcium 500 + D) 2 tab PO QAM lactobacillus combination no.4 3 billion cell capsule (Probiotic) 3,000 mmu cells PO QAM cholecalciferol (vitamin D3) 50 mcg (2,000 unit) tablet (Vitamin D3) 50 mcg PO QAM multivitamin 1 tab PO QAM Take morning of surgery With a small sip of water, OTHERWISE NOTHING TO EAT OR DRINK AFTER MIDNIGHT: fluticasone 250 mcg-salmeterol 50 mcg/dose blistr powdr for inhalation (Wixela Inhub) 1 inh inhalation BID azelastine 137 mcg (0.1 %) nasal spray aerosol 2 spray intranasal UD PRN sinus congestion (if needed) duloxetine 20 mg capsule,delayed release 20 mg PO QAM pantoprazole 40 mg tablet,delayed release (Protonix) 40 mg PO QAM albuterol sulfate 90 mcg/actuation aerosol inhaler (Ventolin HFA) 2 puff inhalation UD PRN Shortness Of Breath (use if needed; please bring with you to hospital day of surgery if possible) Take evening before surgery fluticasone 250 mcg-salmeterol 50 mcg/dose blistr powdr for inhalation (Wixela Inhub) 1 inh inhalation BID azelastine 137 mcg (0.1 %) nasal spray aerosol 2 spray intranasal UD PRN sinus congestion (if needed) ipratropium bromide 21 mcg (0.03 %) nasal spray 2 spray intranasal HS sinus congestion atorvastatin 20 mg tablet 40 mg (2 x 20 mg) PO HS albuterol sulfate 90 mcg/actuation aerosol inhaler (Ventolin HFA) 2 puff inhalation UD PRN Shortness Of Breath (if needed) Other Notes If you have any questions please call us at [phone] or [phone] or [phone] or [phone]
--- NOTE | 2023-08-21 14:48 | Anesthesiology Consultation ---
Date of Service August 21, 2023 Assessment & Plan (1) Encounter for pre-operative examination: Chart Review Chart Review: Acceptable Risk for Surgery and Patient seen in Pre Admission Testing Pt currently scheduled as 23 hours observation. If surgeon decides to change patient to Same Day Joint, patient would be acceptable risk for TKA, pending patient is motivated, has good support and surgeon's office completes Same Day Joint Program preop requirements. Per PAT appt on 08/21/23, no recent illness/disease exposures, illness related symptoms, or recent illness/disease positive tests. Will leave to surgeon's discretion if preop Covid testing needed Patient seen by PCP 08/14/23= OA/right knee DJD- variable, to have R TKA in September 2023, she will continue care per [facility] [place] orthopedics. Shoulder pain- suspected related to impingement vs rotator cuff arthritis. Will recommend PT for shoulder along with knee. Prediabetes- stable. Dyslipidemia- controlled. Tolerating statin. Chronic rhinitis- stable. Follows with ENT/allergy. GERD- stable. Asthma - stable. BETO- stable. Depression/anxiety- stable. Follow up Feb 2024 History Surgery Operation Date: 09/16/23 08:50 Proposed Procedures p Right Total Knee Arthroplasty - Roshan Gallego MD Height/Weight Height: 5 ft 3 in Weight: 87.5 kg Allergies Allergy/AdvReac Type Severity Reaction Status Date / Time Penicillins Allergy Unknown hx rash in Verified 08/19/23 08:30 childhood malagon/testing since and not allergic Medications Home Medications Medication Instructions Recorded Confirmed Last Taken calcium carbonate 500 mg-vitamin 2 tab PO QAM 02/26/18 08/19/23 03/09/23 D3 5 mcg (200 unit) tablet (Calcium 500 + D) lactobacillus combination no.4 3 3,000 mmu cells PO QAM 02/27/18 08/19/23 03/10/23 billion cell capsule (Probiotic) cholecalciferol (vitamin D3) 50 50 mcg PO QAM 08/01/20 08/19/23 03/07/23 mcg (2,000 unit) tablet (Vitamin D3) BiPap Supplies #1 ea 11/14/20 08/14/23 Unknown BiPap Supplies #1 ea 01/05/21 08/14/23 Unknown multivitamin 1 tab PO QAM 12/20/21 08/19/23 03/07/23 fluticasone 250 mcg-salmeterol 50 1 inh inhalation BID #180 ea 01/07/23 08/19/23 03/11/23 07:30 mcg/dose blistr powdr for inhalation (Wixela Inhub) azelastine 137 mcg (0.1 %) nasal 2 spray intranasal UD PRN sinus 01/28/23 08/19/23 Unknown spray aerosol congestion ipratropium bromide 21 mcg (0.03 2 spray intranasal HS sinus 01/28/23 08/19/23 Unknown %) nasal spray congestion atorvastatin 20 mg tablet 40 mg (2 x 20 mg) PO HS #180 tabs 04/10/23 08/19/23 Unknown duloxetine 20 mg capsule,delayed 20 mg PO QAM #90 caps 06/04/23 08/19/23 Unknown release pantoprazole 40 mg tablet,delayed 40 mg PO QAM #90 tabs 08/06/23 08/19/23 Unknown release (Protonix) albuterol sulfate 90 mcg/actuation 2 puff inhalation UD PRN Shortness 08/19/23 08/19/23 Unknown aerosol inhaler (Ventolin HFA) Of Breath Past Medical History Medical History Asthma well controlled, last use rescue inhaler in winter when really cold. Claustrophobia Degenerative cervical spinal stenosis arthritis neck/? stenosis/mild limitation rom. Depression with anxiety Difficult intravenous access hx with ankle surgery 2009. Disorder of right rotator cuff Received recent steroid injection by Dr. 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 Prediabetes diet control Hgb A1C 5.8 on 08/14/23 Exercise / Class Metabolic Activity II 4-5 Yardwork/Stairs/Walk up hill (one flight of stairs- no chest pain or SOB ) Past Family History Family History Mother Coronary heart disease Heart disease Myocardial infarction Sister Skin cancer Esophageal cancer Breast cancer ductal Cancer Asthma Sister Breast cancer Family/Other Primary cancer of kidney Brain cancer Colorectal cancer Jaw cancer Father Hypertension Stroke Family/Other Ovarian cancer Brother Skin cancer Cancer Grandmother (Paternal) Diabetes Lung cancer Cancer Sister Dementia Other Angina pectoris Gastric ulcer Hypercholesteremia Hyperthyroidism Motor vehicle accident No family history of adverse response to anesthesia Denies family history of Prostate cancer Bleeding disorder Past Surgical History Surgical History History of ankle surgery right--bone spur removal History of section x1 History of cholecystectomy History of colonoscopy History of esophagogastroduodenoscopy (EGD) reports hx esophageal inflammation/no known stricture. History of nasal septoplasty (07/25/21) with turbinate reduction-07/25/21-Dr. 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 both sides, pt remembers having 1 side done. Past Anesthesia History No Hx of Anesthesia Complications and No Family Hx of Anesthesia Complications History of PONV No Hx of PONV and No Hx of Motion Sickness Social History Smoking Status: Never smoker Do You Dip or Chew Tobacco: No Hx Alcohol Use: Yes Alcohol type: wine alcohol intake frequency: holidays/special occasions only Hx Substance Use: No substance use type: does not use Review of Systems Patient denies chest pain, shortness of breath, dyspnea on exertion, cough, wheezing, palpitations. No hx of seizures, stroke, [place]. No hx of blood clots or blood transfusions Physical Exam Vital Signs VITALS BP 138/85 P 74 TEMP 97.7 SP02 95% RESP 16 Constitutional no acute distress ENMT Mouth: no TMJ clicking Thyromental Distance: > or= 3.5 Finger Breadths (3.5) Mallampati Class: III Crowns to side teeth Neck + limited neck extension (mild ) Respiratory normal respiratory effort; no respiratory distress Auscultation: lungs clear to auscultation bilaterally; no wheezes Cardiovascular Rate/Rhythm: regular rate and regular rhythm Heart Sounds: no murmur Vessels: no carotid bruit Musculoskeletal Spine: + pain with cervical ROM (mild) Extremities: extremities normal to inspection Psychiatric Orientation: alert Lab Results Anesthesia Preop Results Results Anesthesia Widget: WBC 5.35 K/ul (4.8-10.8) 08/14/23 Hgb 15.1 g/dl (12.0-16.0) 08/14/23 Hct 47.3 % (37.0-47.0) H 08/14/23 Plt 200 K/uL (130-400) 08/14/23 Na 142 mmol/L (136-145) 08/14/23 K 4.2 mmol/L (3.5-5.1) 08/14/23 Cl 107 mmol/L (98-107) 08/14/23 CO2 28 mmol/L (21-32) 08/14/23 BUN 19 mg/dl (6-23) 08/14/23 Creat 0.89 mg/dl (0.6-1.2) 08/14/23 Glucose Level 103 mg/dl (70-99(Fasting)) H 08/14/23 PT 10.6 Seconds (9.0-12.0) 08/21/23 PTT 25 Seconds (21-31) 08/21/23 INR 1.0 (0.9-1.1) 08/21/23 TSH 3.901 uIu/ml (0.300-4.500) 08/14/23 HA1c 5.8 % (4.5-5.6) H 08/14/23 Blood Type A Negative 08/21/23 Antibody Screen NEGATIVE 08/21/23 Testing Electrocardiogram Date: 08/21/23 Findings: + NSR @ (79bpm) Normal EKG per cardio Chest X-Ray Date: 08/21/23 FINDINGS: Lung volumes are normal. Lungs are clear. There is no pneumothorax or pleural effusion. Cardiac size is normal. Mediastinal contours are normal. There is no evidence for pulmonary edema. IMPRESSION: No acute cardiopulmonary findings
[2023-09-16] MEDS: LR 500ML BOLUS, THEN 15ML/HR IV SCH (05:57)
[2023-09-16] MEDS: CeleBREX 200 MG CAP PO SCH (05:57)
[2023-09-16] MEDS: LR 60ML/HR IV SCH (05:57)
[2023-09-16] MEDS: METOCLOPRAMIDE HCL 10 MG TABLET PO SCH (05:57)
[2023-09-16] MEDS: ACETAMINOPHEN 500 MG TAB PO SCH ×2 (05:57→14:25)
[2023-09-16] MEDS: dexAMETHasone**PF** 10 MG/ML VIAL IV SCH (05:57)
[2023-09-16] MEDS: FAMOTIDINE 20 MG TAB PO SCH (05:57)
[2023-09-16] MEDS ORDERED: BUPIVACAINE 0.5 % 5 MG/1 ML PF 10ML VIAL ONE (06:14)
[2023-09-16] MEDS ORDERED: ROPIVACAINE 0.5% 5 MG/ML 30 ML VIAL ONE (06:14)
[2023-09-16] MEDS ORDERED: MIDAZOLAM HCL 1 MG/ML 2ML VIAL ONE (06:38)
[2023-09-16] MEDS ORDERED: fentaNYL citrate PF 100 MCG/2 ML VIAL ONE (06:38)
[2023-09-16] MEDS ORDERED: PROPOFOL IV EMULSION 10 MG/ML 20 ML VIAL IV ONE ×2 (06:44→07:29)
--- NOTE | 2023-09-16 06:45 | History & Physical Bridge Note ---
Date of Service September 16, 2023 History & Physical Bridge Note I have examined the patient, reviewed the History & Physical and in the interval since the performance of the History & Physical I have noted the following changes of clinical significance: no changes noted
[2023-09-16] MEDS: ceFAZolin 2,000 MG/15 ML IV PUSH IV ONE (07:00)
[2023-09-16] MEDS ORDERED: LABETALOL HCL IV 5 MG/ML 20ML IV ONE (07:03)
[2023-09-16] MEDS ORDERED: ePHEDrine sulfate 50 MG/ML AMP IV PRN (07:08)
[2023-09-16] MEDS ORDERED: fentaNYL citrate PF 100 MCG/2 ML VIAL IV PRN (07:08)
[2023-09-16] MEDS ORDERED: ATROPINE SULFATE 0.1 MG/ML 10ML SYR IV PRN (07:08)
[2023-09-16] MEDS ORDERED: ONDANSETRON INJ 2 MG/ML 2 ML VIAL IV PRN (07:08)
[2023-09-16] MEDS ORDERED: KETOROLAC 30 MG/ML VIAL ONE (07:16)
[2023-09-16] MEDS: ORTHO JOINT ANESTHETIC ONE (07:38)
[2023-09-16] MEDS: ROPIV 0.5% 246mg, Ketorolac 30mg, EPINEPHrine 0.5mg in NSS INFIL SCH (07:38)
[2023-09-16] MEDS: TRANEXAMIC ACID 1,000 MG **IV Intra-op IV SCH (07:48)
--- NOTE | 2023-09-16 08:42 | Operative Report ---
PG Post Operative Report Pre & Post Diagnosis Operation Date: 09/16/23 07:00 Pre-Op Diagnosis: Right Knee Degenerative Joint Disease Post-Op Diagnosis: Right Knee Degenerative Joint Disease I identified the patient and participated in the time-out.: Yes Procedure Operation Date: 09/16/23 07:00 Actual Procedures p Right Total Knee Arthroplasty, Cemented(Right) - Roshan Gallego MD Surgeon Roshan Gallego MD Wash Operator John Sullivan PA-C Estimated Blood Loss 50 Findings Consistent with Post-Op Diagnosis Operative findings with advanced right knee DJD. She had advanced grade 4 [id number] disease of the medial and patellofemoral compartments. She had a varus deformity to her knee and about a 10 to 15 degree flexion contracture. Diffuse osteopenia. Specimens Right knee sent for pathology Anesthesia Type Spinal MAC Complications none Disposition Accompanied Patient To Recovery: No Indications Patient is 73-year-old female has had a long history of bilateral knee pain discomfort right side quite a bit worse than the left. Is been through extensive conservative treatment which became less successful over time. X-rays show advanced right knee arthritis. She elected proceed with total knee arth roplasty. Description of Procedure Operative implants consist of: 1 Biomet Vanguard size 65 right posterior stabilized femoral component. 2. Biomet size 71 tibial tray. 3. 10 mm posterior stabilized polyethylene insert. 4. 31 x 8 all poly patella. The patient was taken to the operating, identified, placed on the operating table in the supine position. All contact areas were appropriately padded. IV antibiotics provided by anesthesia team. A spinal anesthetic and adductor canal block had provided in the holding area. A Che catheter was placed in the sterile fashion. A right thigh tent was then placed in the right lower extremity was then prepped and draped in usual sterile fashion. The right leg was elevated and exsanguinated with use of an Esmarch and the tourniquet was placed at 300 mmHg. An anterior approach of the right knee was then performed to longitudinal incision centered over the patella. Sharp dissection was carried through subcutaneous tissue down the extensor mechanism. A medial parapatellar arthrotomy incision was made. Some subperiosteal dissection was carried out medially. The fat pad was resected from Neath patella tendon. The lateral patellofemoral ligament was released. Patella subluxated laterally and the knee was flexed. The osteophytes taken on distal femur. The ACL and PCL were then released in the distal femur and the tibia subluxated anteriorly. The external treatment LYMErix then placed in the interface the tibia and adjusted 14 mm medially. Proximal tibial cut was made remove about 2 mm of bone from the medial side. The tibia was sized to a size 71. I tried to maximize coverage due to her osteopenia. Attention drawn the femur. The distal femur examined the sharp drill. Intramedullary canal was suction. A right 5 degree valgus cutting guide was placed but the distal femoral cutting block was pinned in place. The distal femoral cut was made take an additional 3 mm of bone off distal femur. The femur was then sized to a size 65. The AP cutting block was pinned parallel to the epicondylar axis which was 3 degrees of external rotation. The anterior cut, anterior chamfer, posterior cut, posterior chamfer cuts were made. The box cutting guide was placed in the just slight lateral and the box cut was made. The knee was flexed. The remnants of the medial and lateral menisci were excised. The osteophytes taken off the posterior aspect the femur. A trial femoral component was placed. Tibial tray was pinned Jasmin external rotation and the drill and stem punch were used to create defect in proximal tibia for the tibial tray. The knee was then trialed and the 10 mm insert fit most appropriately. Attention drawn the patella. The patella was cleaned of all soft tissues. Patella thickness measured about 18 mm in thickness was cut down to 12. Was sized to a size 31 patella. The lug holes were drilled for 31 patella. The lateral osteophytes removed. Patella button was placed. Knee was taken through range of motion patella tracked nicely with no thumbs test. Attention was then drawn toward placing the permanent components. All trial components were removed. Bone plug was placed in the distal femur limit blood loss. Double batch Palacos G cement was mixed. A Biomet Vanguard size 65 right posterior Byce femoral component, size 71 tibial tray, a 10 mm post stabilized polyethylene insert, and a 31 x 8 all poly patella then cemented in place. Knee was brought out into full extension till cement hardened. Final cement check was then performed. The pericapsular tissues were injected with total of 100 cc of Ortho mix. Patient did receive 1 g tranexamic acid. The tourniquet was then let down for final tourniquet time 50 minutes. Hemostasis assured use electrocautery. Extensor Meclomen closed with combination 1 PDS suture #1 Vicryl suture in a [id number] fashion. Extensor Meclomen checked found to be intact in the subcutaneous tissues then closed with 2 Dexon suture in a buried interrupted fashion skin was closed skin radha. Leg was then cleaned and dried and sterile dressing was Xeroform, 4 fours, sterile cast padding, August bandage were applied. Patient then transferred to the recovery room in stable condition. The patient tolerated procedure well and there were no complications. John Sullivan, my physician library assistant, was present for the entire procedure. His assistance was essential and required for appropriate patient positioning, prepping and draping, surgical exposure, performing the technical details of the operation, placement the implants, closure of the wound, and placement of the sterile bandage. I attest to the content of the Intraoperative Record and any orders documented therein. Any exceptions are noted below.
--- NOTE | 2023-09-16 08:51 | XRay Report ---
TWO VIEWS RIGHT KNEE CLINICAL HISTORY: Postoperative examination. FINDINGS: AP and crosstable lateral portable views of the right knee are obtained. A right knee arthr oplasty is in near anatomic alignment. There has been undersurface remodeling of the patella. No acut e fracture is seen. There are expected postoperative changes around the knee including skin clips, so ft tissue edema, and subcutaneous gas. IMPRESSION: Expected postoperative changes status post right knee arthroplasty. No acute fracture is seen. ACT 112: Negative or not required by law. Electronically signed by: Pxaton Muhammad M.D. 09/16/2023 8:50 AM
--- NOTE | 2023-09-16 10:43 | Anesthesiology Progress Note ---
Date of Service September 16, 2023 Anesthesia Post Procedure Vital Signs Vital Signs: Temp Pulse Pulse Resp BP Pulse Ox O2 Del Method 09/16/23 10:30 68 20 125/74 95 Room Air 09/16/23 10:15 69 21 130/84 95 Room Air 09/16/23 10:05 68 19 126/75 98 Room Air 09/16/23 09:55 97.5 F L 70 21 122/77 98 Room Air 09/16/23 09:45 68 16 129/94 98 Room Air 09/16/23 09:35 67 13 140/87 97 Room Air 09/16/23 09:25 66 18 143/79 H 99 Oxymask 09/16/23 09:16 66 15 155/75 H 100 Oxymask 09/16/23 09:05 65 19 153/96 H 98 Oxymask 09/16/23 08:55 64 21 158/92 H 98 Oxymask 09/16/23 08:45 65 13 156/93 H 100 Oxymask 09/16/23 08:36 97.2 F L 69 14 144/89 H 99 Oxymask 09/16/23 05:44 Room Air, BiPAP 09/16/23 05:44 97.9 F 77 18 202/109 H 98 Room Air, BiPAP O2 Flow Rate 09/16/23 10:30 09/16/23 10:15 09/16/23 10:05 09/16/23 09:55 09/16/23 09:45 09/16/23 09:35 09/16/23 09:25 2 09/16/23 09:16 2 09/16/23 09:05 2 09/16/23 08:55 3 09/16/23 08:45 3 09/16/23 08:36 6 09/16/23 05:44 09/16/23 05:44 Pain Intensity Left Shoulder: Pain Intensity: 9 Right Knee: Pain Intensity: 0 Transfer of Care Handoff Completed per policy Notes Mental Status: alert / awake / arousable and participated in evaluation Patient Amnestic to Procedure: Yes Nausea / Vomiting: adequately controlled Pain: adequately controlled Airway Patency, RR, SpO2: stable & adequate BP & HR: stable & adequate Hydration State: stable & adequate Neuraxial Anesthesia: was administered and sensory block is resolving Anesthetic Complications: no major complications apparent and Pt Satisfied with anesthetic care
[2023-09-16] MEDS ORDERED: GLUCOSE 10 TAB/TUBE PO PRN (11:03)
[2023-09-16] MEDS ORDERED: GLUCOSE 40% GEL 15 GM TUBE PO PRN (11:03)
[2023-09-16] MEDS ORDERED: CARBOHYDRATES FOR HYPOGLYCEMIA PO PRN (11:03)
[2023-09-16] MEDS ORDERED: MAGNESIUM HYDROXIDE SUSP 30 ML UDC PO PRN (11:03)
[2023-09-16] MEDS ORDERED: ALBUTEROL HFA 8 GM INHALER INH PRN (11:03)
[2023-09-16] MEDS ORDERED: GLUCAGON FOR INJ 1 MG VIAL SQ PRN (11:03)
[2023-09-16] MEDS ORDERED: DEXTROSE 50% 50 ML SYRINGE IV PRN (11:03)
[2023-09-16] MEDS ORDERED: bisacodyL 10 MG SUPP PR PRN (11:03)
[2023-09-16] MEDS ORDERED: PHARMACY GLYCEMIC MGMT CONSULT PRN (11:03)
[2023-09-16] MEDS ORDERED: AZELASTINE HCL 0.1% NASAL 200 SPRAYS/27,400 MCG BTL NAE PRN (11:03)
[2023-09-16] MEDS ORDERED: ALUMINUM/MAGNESIUM SUSP 30 ML UDC PO PRN (11:03)
[2023-09-16] MEDS ORDERED: NALOXONE HCL 0.4 MG/1 ML VIAL/CARP IV PRN (11:03)
[2023-09-16] MEDS ORDERED: NON-FORMULARY MEDICATION (Multivitamin Tablet) PO SCH (11:03)
[2023-09-16] MEDS: SODIUM CHLORIDE 0.9% 1,000 ML IV SCH (11:16)
[2023-09-16] MEDS: KETOROLAC TROMETHAMINE 15 MG/ML VIAL IV SCH (12:30)
[2023-09-16] MEDS: DOCUSATE SODIUM 100 MG CAP PO SCH (12:31)
[2023-09-16] MEDS: PANTOprazole 40 MG TAB PO SCH (12:31)
[2023-09-16] MEDS: ASPIRIN 81 MG ECTAB PO SCH (12:31)
[2023-09-16] MEDS: MULTIVITAMIN TAB PO SCH (12:31)
[2023-09-16] MEDS: DULoxetine HCL 20 MG CAP PO SCH (12:32)
[2023-09-16] MEDS: CALCIUM 600MG + VIT D 400 IU TAB PO SCH (12:32)
[2023-09-16] MEDS: SENNA 8.6 MG TAB PO SCH (12:32)
[2023-09-16] MEDS: INSULIN ASPART PER UNIT CHARGE SC SCH (12:54)
[2023-09-16] MEDS: TRANEXAMIC ACID / 0.7% NACL 1,000 MG/100 ML BAG IV SCH (14:25)
[2023-09-16] MEDS: ceFAZolin 2000MG 2,000 MG/15 ML SYR IV SCH (14:33)
--- NOTE | 2023-09-16 14:38 | Pharmacy Report ---
Pharmacy Glycemic Short Note 2 - Date of Service September 16, 2023 - Glycemic Short BSG Results (Last 24 hours): 09/16/23 11:32 POC Glucose 127 H OUTPATIENT ANTIDIABETIC REGIMEN: * Diet controlled Prediabetes * A1c 5.8% 08/14/23 ASSESSMENT: * Patient admitted following Right total knee arthroplasty, received 10 mg IV dexamethasone preop * Post-op BSG 127 mg/dL within goal range, uncertain if IV dex will have signif icant effect on BSGs * Will start conservative novolog dose, overnight checks * Hold basal for now PLAN FOR INPATIENT GLYCEMIC CONTROL: * Hold outpatient oral diabetes medications * Basal insulin * Hold * Bolus insulin * NovoLog per scale ACHS or Q6hrs while NPO * Goal Range: Low 110 mg/dL - High 140 mg/dL * Correction Factor: 40 mg/dL/unit * Nutritional / Prandial insulin per carb ratio of 1 unit per 15 grams CHO consumed
[2023-09-16] MEDS: oxyCODONE HCL IR 5 MG TAB (IMMEDIATE RELEASE) PO PRN (15:31)
[2023-09-16] MEDS: ASCORBIC ACID 500 MG TAB PO SCH (17:16)
[2023-09-16] MEDS: HYDROmorphone INJ 0.5 MG/0.5 ML SYR IV PRN (17:49)
[2023-09-16] MEDS: ONDANSETRON INJ 2 MG/ML 2 ML VIAL IV PRN (20:20)
[2023-09-16] MEDS ORDERED: [UNRECOGNIZED DRUG - OTHER] SCH (21:00)
[2023-09-16] MEDS ORDERED: SENNA 8.6 MG TAB PO SCH (21:00)
[2023-09-16] MEDS: FLUTICASONE/VILANTEROL 200/25MCG 14 PUFFS/INHALER INH SCH (21:29)
[2023-09-16] MEDS: IPRATROPIUM BROMIDE NASAL SPRAY 0.06% 15ML NAE SCH (21:29)
[2023-09-16] MEDS: ATORVASTATIN 40 MG TAB PO SCH (21:31)
[2023-09-16] MEDS: METOCLOPRAMIDE HCL INJ 5 MG/ML 2 ML VIAL IV PRN (23:25)
[2023-09-17] MEDS: INSULIN ASPART PER UNIT CHARGE SC ONE (03:33)
[2023-09-17 07:08] LABS: Hemoglobin 11.2 g/dl (12.0-16.0); Mean Corpuscular Hemoglobin 27.7 pg (25.0-34.0); Mean Corpuscular Hgb Conc 32.9 g/dL (32.0-36.0); Mean Platelet Volume 9.5 fL (9.4-12.4); Platelet Count 168 K/uL (130-400); RDW Standard Deviation 42.9 fL (36.4-46.3); Red Blood Count 4.05 M/uL (4.20-5.40); White Blood Count 7.81 K/ul (4.8-10.8)
[2023-09-17 07:30] LABS: BUN Creatinine Ratio 23.9 (10-20); Calcium 8.8 mg/dl (8.6-10.3); Creatinine Clr Calc Pharmacy 47.7 ml/min; Est GFR (African American) 58.7 ml/min; Est GFR (Non-African American) 50.7 ml/min; Potassium 4.2 mmol/L (3.5-5.1)
[2023-09-17] MEDS: CHOLECALCIFEROL 25 MCG (1000 UNITS) TAB PO SCH (08:10)
[2023-09-17] MEDS: ADVANCED PROBIOTIC 625 MG CAPSULE PO SCH (08:11)
[2023-09-17] MEDS: dexAMETHasone 10 MG in SYRINGE 0 ML IV SCH (08:12)
--- NOTE | 2023-09-17 08:39 | Orthopedic Progress Note ---
Date of Service September 17, 2023 Assessment & Plan (1) Right knee DJD: (2) Status post total right knee replacement using cement: Plan 73-year-old woman POD# 1 s/p right total knee replacement, doing well overall. Pain is well-controlled. Medically stable. Postop x-rays well-appearing. She is neurologically intact. Plan: 1. DVT prophylaxis w/ TEDs, SCDs, ASA 81 mg BID. 2. PT/OT as tolerated. WBAT on the RLE. Encourage heel slides, SLR, full knee extension w/ quad sets. 3. Pain control doing well with current pain regimen. 4. Dressing change POD#2 per discharge instructions. 5. Disposition - plan to D/C home w/ home health care later today once cleared by PT/OT. 6. F/u 2 weeks post-op w/ orthopedics (Dr. Gallego's team), or as previously scheduled, for first post-op visit. Admission and Anticipated Discharge Date Admission Date: September 16, 2023 Subjective Patient is POD# 1 s/p right total knee arthroplasty by Dr. Gallego on 09/16/2023. Patient says her pain is well-controlled this morning. Denies CP, SOB, N/V, RLE paresthesia. She has home health care arranged to come to the house for therapy. Patient says that she will be ready to go home today. Physical Exam Physical Exam: GENERAL: AA&Ox3, NAD. Pleasant, affect is calm. Sitting in bed eating and appears comfortable. RESPIRATORY: Normal respiratory effort with no signs of distress. CHEST/AXILLA: Chest movement symmetrical. No deformities noted. CARDIOVASCULAR: No edema noted. SKIN: [place], warm and dry. MS/EXTREMITY: Knee dressing & KALE wrap c/d/i. JILLIAN hose donned to contralateral LE. + ankle dorsi/plantarflexion. NVI distally. Calf soft/NT. PT/DP intact. Results & Data Vital Signs (Past 12 Hours) Vital Signs Temp Pulse Resp BP BP Pulse Ox O2 Del Method 09/17/23 07:31 36.6 C 67 16 133/80 96 Room Air 09/17/23 03:00 36.8 C 77 17 137/73 94 Room Air 09/16/23 23:00 36.9 C 80 18 163/81 H 96 Room Air Laboratory Results Laboratory Results - last 24 hr 09/16/23 09/16/23 09/16/23 16:25 21:03 23:32 WBC RBC Hgb Hct MCV MCH MCHC RDW Std Deviation RDW Coeff of Huey Plt Count MPV Sodium Potassium Chloride Carbon Dioxide Anion Gap BUN Creatinine Est Cr Clr Drug Dosing Est GFR ( Amer) Est GFR (Non-Af Amer) BUN/Creatinine Ratio Glucose POC Glucose 151 H 121 H 120 H Calcium 09/17/23 09/17/23 09/17/23 03:32 06:44 07:34 WBC 7.81 RBC 4.05 L Hgb 11.2 L Hct 34.0 L MCV 84.0 MCH 27.7 MCHC 32.9 RDW Std Deviation 42.9 RDW Coeff of Huey 14.0 Plt Count 168 MPV 9.5 Sodium 140 Potassium 4.2 Chloride 105 Carbon Dioxide 29 Anion Gap 6 BUN 26 H Creatinine 1.09 Est Cr Clr Drug Dosing 47.7 Est GFR ( Amer) 58.7 Est GFR (Non-Af Amer) 50.7 BUN/Creatinine Ratio 23.9 H Glucose 107 H POC Glucose 130 H 104 H Calcium 8.8 09/17/23 11:16 WBC RBC Hgb Hct MCV MCH MCHC RDW Std Deviation RDW Coeff of Huey Plt Count MPV Sodium Potassium Chloride Carbon Dioxide Anion Gap BUN Creatinine Est Cr Clr Drug Dosing Est GFR ( Amer) Est GFR (Non-Af Amer) BUN/Creatinine Ratio Glucose POC Glucose 147 H Calcium Diagnostic Findings Knee X-Ray 09/16/23 08:34 TWO VIEWS RIGHT KNEE CLINICAL HISTORY: Postoperative examination. FINDINGS: AP and crosstable lateral portable views of the right knee are obtained. A right knee arthroplasty is in near anatomic alignment. There has been undersurface remodeling of the patella. No acute fracture is seen. There are expected postoperative changes around the knee including skin clips, soft tissue edema, and subcutaneous gas. IMPRESSION: Expected postoperative changes status post right knee arthroplasty. No acute fracture is seen. ACT 112: Negative or not required by law. Electronically signed by: Paxton Muhammad M.D. 09/16/2023 8:50 AM
--- NOTE | 2023-09-17 13:19 | Discharge Summary ---
Date of Service September 17, 2023 Admission HPI Per Admitting Provider This is a 73-year-old female who presents mostly for her knee today. She has got a long history of knee problems. She has been through extensive conservative treatment, which became less successful over time. The knee is starting to bother her more. It is mostly medial pain, but some anterior pain. It increases with activities. It swells more as the day goes on. She did have a viscosupplementation injection which did not help at all most recently. She is ready to have her knee fixed. She also reports about a month history of shoulder pain. She describes lateral and anterior pain. It increases with elevation. No particular injury. No numbness. Admission Exam Per Admitting Provider Gen: Physical examination shows a pleasant middle-aged female. She looks to be in pretty good health. HEENT: Benign. Neck: Supple. No lymphadenopathy. Lungs: Clear to auscultation. Heart: Regular rate and rhythm. Abdomen: Soft, nontender, and nondistended. Extremities: Grossly neurovascularly intact except as follows: Examination of the right knee reveals the patient ambulates with a bit of a varus alignment to her knee. She has got a little bit of varus thrust. She has got tenderness medially. Minimal knee effusion. Range of motion is 5 to 120. No instability. Examination of the right shoulder reveals no obvious atrophy or bruising. She has got near full shoulder motion. Lacks a little bit of internal rotation behind her back. Motor strength is 4/5. She has got brisk refill. She does have pain with impingement testing. No clinical instability. XR Exam: Four views of the right knee from today are reviewed. It shows advanced medial compartmental arthritis. She has got complete loss of her medial joint space. Principal Diagnosis Same as "Discharge Diagnosis" noted below under Discharge Instructions. Discharge Exam GENERAL: AA&Ox3, NAD. Pleasant, affect is calm. Sitting in bed eating and appears comfortable. RESPIRATORY: Normal respiratory effort with no signs of distress. CHEST/AXILLA: Chest movement symmetrical. No deformities noted. CARDIOVASCULAR: No edema noted. SKIN: [place], warm and dry. MS/EXTREMITY: Knee dressing & KALE wrap c/d/i. JILLIAN hose donned to contralateral LE. + ankle dorsi/plantarflexion. NVI distally. Calf soft/NT. PT/DP intact. Discharge Data Allergies Allergy/AdvReac Type Severity Reaction Status Date / Time No Known Allergies Allergy Unverified 09/16/23 05:34 Procedures Performed Operation Date: 09/16/23 07:00 Actual Procedures p Right Total Knee Arthroplasty, Cemented(Right) - Roshan Gallego MD Ordered Studies 09/16/23 05:00 US - OR guided needle placemen Routine Knee X-Ray 09/16/23 08:34 TWO VIEWS RIGHT KNEE CLINICAL HISTORY: Postoperative examination. FINDINGS: AP and crosstable lateral portable views of the right knee are obtained. A right knee arthroplasty is in near anatomic alignment. There has been undersurface remodeling of the patella. No acute fracture is seen. There are expected postoperative changes around the knee including skin clips, soft tissue edema, and subcutaneous gas. IMPRESSION: Expected postoperative changes status post right knee arthroplasty. No acute fracture is seen. ACT 112: Negative or not required by law. Electronically signed by: Paxton Muhammad M.D. 09/16/2023 8:50 AM Hospital Course (1) Right knee DJD: (2) Status post total right knee replacement using cement: On September 16, 2023 Kiersten arrived at [facility] operating room and underwent a right total knee replacement without complications. Patient had a spinal anesthetic for the procedure. Postoperatively, patient was transferred to the general orthopedic floor in stable condition and eventually started onto aspirin 81 mg twice daily for DVT prophylaxis as appropriate. Patient's hospital course was uneventful. On postoperative day #1, patient's vital signs were stable and pain was well-controlled. Patient was able to participate well with physical therapy, performing the necessary ambulation and range of motion exercises. Patient was then discharged home in stable condition, with home health care services to begin. Patient will follow-up with orthopedics in 2 weeks for postoperative care. Plan 73-year-old woman POD# 1 s/p right total knee replacement, doing well overall. Pain is well-controlled. Medically stable. Postop x-rays well-appearing. She is neurologically intact. Plan: 1. DVT prophylaxis w/ TEDs, SCDs, ASA 81 mg BID. 2. PT/OT as tolerated. WBAT on the RLE. Encourage heel slides, SLR, full knee extension w/ quad sets. 3. Pain control doing well with current pain regimen. 4. Dressing change POD#2 per discharge instructions. 5. Disposition - plan to D/C home w/ home health care later today once cleared by PT/OT. 6. F/u 2 weeks post-op w/ orthopedics (Dr. Gallego's team), or as previously scheduled, for first post-op visit. Total Time Total Time Spent Total Time Spent (In Minutes): Total Time Spent with Patient: Total time spent is greater than 50% in coordination of care (as documented) at patient's floor/unit and/or counseling patient: Discharge Plan Discharge Items Patient Disposition: Home - Home Health Services Reason For Visit: Right Knee Degenerative Joint Disease Discharge Diagnosis: Right Knee Replacement Activity: Per Instructions section Weightbearing: Full weightbearing Non-emergency contact: Surgeon Call non-emergency contact if: you have any medication questions Follow-up/Referrals: Aziza Avila DO [Primary Care Provider] - Diet: Regular and Carb Consistent or DM2 Addtl Attending Provider Instructions: ACTIVITY RECOMMENDATIONS: Physical Therapy: * You will go to physical therapy three times each week for four to six weeks after your surgery in order to regain your knee range of motion and to retrain your knee to work properly. * It is just as important to make sure you are getting your knee perfectly straight as it is to regain your knee bend. * Taking a pain pill an hour before therapy can help you have a more productive and comfortable therapy session. Home Exercise: * You were shown a series of exercises (heel props, heel slides, etc.) in the hospital. Do these exercises three to four times each day including the exercises you were shown in physical therapy. Walking: * Get up and walk several times each day. For the first four weeks, try not to stand or walk for more than one hour at a time. If you do stand or walk for more than one hour, you will not hurt anything, but your knee and leg will likely swell. * As you feel comfortable, you may change from the walker or crutches to a cane and then to independent walking. MEDICATIONS: New Medicine: * You will likely be taking one or more of these medications: 1. Oxycodone - A quick and shorter-acting pain medication. Take one to two tablets every six hours to lessen your pain. 2. Aspirin - Thins your blood to lessen the chance of forming a blood clot. * The most common side effects of pain medicine and iron are nausea and constipation. If nausea or constipation is too much of a problem or if you have any questions about your new medicines or doses, call [facility] at [phone]. We will try to help you manage these issues. "VERY IMPORTANT TO READ AND REVIEW" Pain: * The immediate post-operative period after knee replacement surgery is often quite painful. * You are given a prescription for pain medicine. You should take it, as directed, when you need it, especially before physical therapy and before going to bed. Pain that interferes with sleep is very common and can last several months. * You will likely need pain medicine for the first four to six weeks. It will not stop all of the pain. The pain will lessen and as you feel better, you may change to milder pain medicine such as Tylenol. * The most common side effects of pain medicine are nausea and constipation, so don't take more than you need. SPECIAL CARE INSTRUCTIONS: TEDs/Elastic Stockings: * The white elastic stockings help limit swelling and prevent blood clots from forming in your legs. The more you wear them, the more they work. * Wear them for six weeks after knee replacement surgery and four weeks after partial knee replacement. Incision Site Care: * Remove dressing postoperative day 2 and then shower. Keep direct shower pressure off the incision site. * After showering, cover radha with dry gauze and change daily or more frequently if the dressing is getting saturated with drainage. * Use the JILLIAN stockings to hold dressing in place. DO NOT apply tape on the skin. * May completely stop using bandage if wound is dry and no drainage * Radha are removed between 2 and 3 weeks post-op. If your follow-up appointment is made before 2 weeks, please have your appointment re- scheduled. It is too early to remove the radha. Prevention of Infection: * Take antibiotics one hour before any dental cleaning, dental work, urological procedure, gastrointestinal procedure or any invasive surgery in order to prevent your new joint from getting infected. * You may get the antibiotics from the doctor performing the procedure or you may call our office at [phone] before and we will call in a prescription to the pharmacy of your choice. Things to Watch For: * Drainage from the incision site that occurs more than one week after your surgery. * Severely increased knee/leg pain or swelling. * Increased redness at the incision site. * Fever above 102 degrees Fahrenheit. * Unusual chest pain or shortness of breath. * Unusual pain or burning with urination. Call [facility] at [phone] with any of the above problems or if you have any questions about your medicines or recovery. FOLLOW UP VISIT: Make an appointment to see your doctor for approximately two weeks after surgery for a progress check and staple removal by calling the office at [phone]. Pending Studies at Discharge: No Stand-Alone Forms: [facility] [employer], Smoking Cessation Medications and DC Order Prescriptions: Continued (DME) BiPap Supplies [facility] [place] See Rx Instructions .Route Qty: 1 1RF Rx Instructions: Heated Tubing(hose) for BIPAP machine fluticasone propion-salmeterol [Wixela Inhub] 250-50 mcg/dose blister with device 1 inh inhalation BID Qty: 180 5RF atorvastatin 20 mg tablet 40 mg PO HS Qty: 180 1RF duloxetine 20 mg capsule,delayed release(DR/EC) 20 mg PO QAM Qty: 90 1RF pantoprazole [Protonix] 40 mg tablet,delayed release (DR/EC) 40 mg PO QAM Qty: 90 2RF (DME) Wheeled Walker [facility] [place] See Rx Instructions .MEDSUPPLY Qty: 1 0RF Rx Instructions: As directed oxycodone 5 mg tablet 5 - 10 mg PO Q6 PRN (Reason: pain) Qty: 40 0RF Rx Instructions: Take as needed for pain ondansetron 4 mg tablet,disintegrating 4 mg PO Q8 PRN (Reason: nausea) Qty: 20 1RF Rx Instructions: Take as needed for nausea ketorolac 10 mg tablet 10 mg PO Q6 5 Days Qty: 20 0RF Rx Instructions: Take 4 times per day with food for 5 days to lessen pain and swelling. sennosides [Senokot] 8.6 mg tablet 8.6 mg PO BID 14 Days Qty: 28 0RF Rx Instructions: Take two times a day to prevent/treat constipation acetaminophen [Tylenol Extra Strength] 500 mg tablet 1,000 mg PO TID 30 Days Qty: 180 0RF Rx Instructions: TAke 3 times per day to lessen pain. aspirin [Angel Low Dose Aspirin] 81 mg tablet,delayed release (DR/EC) 81 mg PO BID 45 Days Qty: 90 0RF Rx Instructions: Take to prevent blood clots. cefadroxil 500 mg capsule 500 mg PO BID 7 Days Qty: 14 0RF Rx Instructions: Take 1 cap twice a day to prevent infection (DME) BiPap Supplies Misc See Rx Instructions .Route Qty: 1 0RF Rx Instructions: As directed azelastine 137 mcg (0.1 %) aerosol,spray 2 spray intranasal UD PRN (Reason: sinus congestion) ipratropium bromide 21 mcg (0.03 %) spray,non-aerosol 2 spray intranasal HS Rx Instructions: administer into each nostril calcium carbonate-vitamin D3 [Calcium 500 + D] 500 mg(1,250mg) -200 unit Tablet 2 tab PO QAM Probiotic 3 billion cell Capsule 3,000 mmu cells PO QAM cholecalciferol (vitamin D3) [Vitamin D3] 50 mcg (2,000 unit) tablet 50 mcg PO QAM multivitamin Tablet 1 tab PO QAM albuterol sulfate [Ventolin HFA] 90 mcg/actuation HFA aerosol inhaler 2 puff INHALATION UD PRN (Reason: Shortness Of Breath) Patient Comments: rare Krames/Other Patient Handouts: Oxycodone Oral Tablet, Knee Replacement Total Dc Admission Data Admit Date/Time: 09/16/23 08:34 Attending Provider: Roshan Gallego Admit Provider: Roshan Gallego Primary Care Provider: Aziza Avila Other Providers: [facility] Other Interventions: Discharge Summary Assessment (RN) Last Done: 09/17/23 11:09
== END 2023-09-17 13:15 | disposition home health service (06) ==
LOC: ASU 05:11 → 3E 05:11